=== PATIENT | female | born 1965 | race Caucasian/White ===

== ENCOUNTER → 2017-09-10 | Outpatient (CLI) | payer MEDICARE | LOC: LAB 13:54 | PROVIDERS: ATTEND Otolaryngology | DX: J30.9 Allergic rhinitis, unspecified (principal) | CPT/HCPCS: 36415; 82785; 86003 ==

== ENCOUNTER 2018-02-28 13:36 | Emergency (ER) | payer MEDICARE, MEDICAID ==
--- NOTE | 2018-02-28 15:50 | ER Document Report ---
HPI - HPI Patient complains to provider of: Sacral pain Time Seen by Provider: 02/28/18 15:39 Onset: Other - 3 weeks Onset/Duration: Persistent Pain Level: 5 Context: Patient states that she fell off of a ladder over 3 weeks ago landing on her bottom. Patient complains of pain to the upper gluteal cleft. Patient denies any leg pain paresthesia or weakness. Patient denies any fever. Patient states she feels lumps to this area. Associated Symptoms: Other - Sacral pain. denies: Fever, Weakness Exacerbated by: Sitting Relieved by: Denies Similar symptoms previously: No Recently seen / treated by doctor: No - ROS ROS below otherwise negative: Yes Systems Reviewed and Negative: Yes All other systems reviewed and negative - CONSTITUTIONAL Constitutional: DENIES: Fever, Chills - NEURO Neurology: DENIES: Headache, Weakness - CARDIOVASCULAR Cardiovascular: DENIES: Chest pain - RESPIRATORY Respiratory: DENIES: Trouble Breathing, Coughing - URINARY Urinary: DENIES: Dysuria, Urgency, Frequency - REPRODUCTIVE Reproductive: DENIES: : - MUSCULOSKELETAL Musculoskeletal: REPORTS: Back Pain - Sacral pain. DENIES: Extremity pain Past Medical History - General Information source: Patient - Social History Smoking Status: Current Every Day Smoker Chew tobacco use (# tins/day): No Smoking Education Provided: Yes Drug Abuse: None Occupation: None Lives with: Family Family History: Reviewed & Not Pertinent Patient has suicidal ideation: No Patient has homicidal ideation: No - Past Medical History Cardiac Medical History: Reports: Hx Hypercholesterolemia Pulmonary Medical History: Reports: Hx COPD Endocrine Medical History: Reports: Other - Adrenal insufficiency Renal/ Medical History: Denies: Hx Peritoneal Dialysis Psychiatric Medical History: Reports: Hx Anxiety Past Surgical History: Reports: Hx Hysterectomy Vertical Provider Document - CONSTITUTIONAL Agree With Documented VS: Yes Exam Limitations: No Limitations General Appearance: WD/WN - INFECTION CONTROL TRAVEL OUTSIDE OF THE [place] IN LAST 30 DAYS: No - HEENT HEENT: Atraumatic, Normocephalic - NECK Neck: Normal Inspection - RESPIRATORY Respiratory: No Respiratory Distress - CARDIOVASCULAR Cardiovascular: Regular Rate, Regular Rhythm - GI/ABDOMEN Gastrointestinal: Abdomen Soft - BACK Back: Abnormal Inspection - Sacral tenderness, no swelling, no erythema. No ecchymosis - MUSCULOSKELETAL/EXTREMETIES Musculoskeletal/Extremeties: LAUREANO BONILLA - NEURO Level of Consciousness: Awake, Alert, Appropriate Motor/Sensory: No Motor Deficit - DERM Integumentary: Warm, Dry. negative: Abscess Notes: Patient with small 1 cm fissure at the apex of her gluteal cleft Course - Vital Signs Vital signs: Temp Pulse Resp BP Pulse Ox 98.3 F 63 14 123/47 L 98 02/28/18 13:43 02/28/18 13:43 02/28/18 13:43 02/28/18 13:43 02/28/18 13:43 - Diagnostic Test Radiology reviewed: Reports reviewed Discharge - Discharge Clinical Impression: Sacral pain, Fissure in skin Condition: Stable Disposition: HOME, SELF-CARE Instructions: Coccyx Injury ([facility]) Additional Instructions: Return immediately for any new or worsening symptoms Followup with your primary care provider, call tomorrow to make a followup appointment You may use a donut pillow when sitting to help with comfort Prescriptions: Nystatin [Mycostatin Cream 15 gm] 1 applic TP BID #30 gm Forms: Smoking Cessation Education Referrals: PHILLIP OLIVEIRA MD [ACTIVE STAFF] - Follow up as needed
--- NOTE | 2018-02-28 16:36 | RADIOLOGY REPORT (SQ) ---
EXAM DESCRIPTION: SACRUM AND COCCYX COMPLETED DATE/TIME: 02/28/2018 4:28 pm REASON FOR STUDY: fall, sacral pain COMPARISON: None. NUMBER OF VIEWS: Three views. TECHNIQUE: AP, lateral, and tilt views of the sacrum and coccyx. LIMITATIONS: None. FINDINGS: MINERALIZATION: Normal. BONES: No acute fracture or dislocation. No worrisome bone lesions. SOFT TISSUES: No soft tissue swelling. No foreign body. OTHER: Marked degenerative changes in the hips. IMPRESSION: NEGATIVE STUDY OF THE SACRUM AND COCCYX. TECHNICAL DOCUMENTATION: JOB ID: [id number] [employer]- All Rights Reserved Reading location - IP/workstation name: [email or web address]-[email or web address]
[2018-02-28 17:22] VITALS: BP 113/52
== END 2018-02-28 17:21 | disposition home or self-care (01) ==
LOC: ER 13:36
DX: M53.3 Sacrococcygeal disorders, not elsewhere classified (principal); R23.4 Changes in skin texture; F17.200 Nicotine dependence, unspecified, uncomplicated; E78.00 Pure hypercholesterolemia, unspecified; J44.9 Chronic obstructive pulmonary disease, unspecified; Z90.710 Acquired absence of both cervix and uterus
CPT/HCPCS: 72220; 99283

== ENCOUNTER → 2019-04-11 | Outpatient (CLI) | payer MEDICAID, MEDICARE ==
--- NOTE | 2019-04-11 17:49 | RADIOLOGY REPORT (SQ) ---
EXAM DESCRIPTION: RIBS RIGHT W/PA CHEST COMPLETED DATE/TIME: 04/11/2019 4:37 pm REASON FOR STUDY: RIBS/CHEST RIGHT SIDE PAIN; CODE: 01408; (R07.81) COMPARISON: None. TECHNIQUE: Frontal view of the chest and additional views of the right ribs acquired. NUMBER OF VIEWS: Three view. LIMITATIONS: None. FINDINGS: FRONTAL CXR: No pneumothorax. No pleural effusion. No atelectasis or infiltrates. RIBS: No displaced rib fractures. No lytic or blastic bony lesions. OTHER: No other significant finding. IMPRESSION: NO PNEUMOTHORAX. NO DISPLACED RIB FRACTURES. COMMENT: SITE OF TRAUMA/COMPLAINT MARKED/STAMP COMPLETED: NOT APPLICABLE. TECHNICAL DOCUMENTATION: JOB ID: [id number] [employer]- All Rights Reserved Reading location - IP/workstation name: [email or web address]
== END ==
LOC: RAD 16:20
PROVIDERS: ATTEND Nurse Practitioner Acute Care
DX: R07.81 Pleurodynia (principal)